=== PATIENT | male | born 1970 | race American Indian/Alaskan Native ===

== ENCOUNTER 2017-04-30 09:16 | Emergency (ER) | payer BC, OTHER ==
[2017-04-30 09:35] VITALS: BP 128/73
[2017-04-30 10:06] LABS: Basophils # (Auto) 0.1 K/mm3 (0.0-0.1); Basophils % (Auto) 0.7 % (0.0-1.8); Eosinophils # (Auto) 0.2 K/mm3 (0.0-0.4); Eosinophils % (Auto) 2.1 % (0.0-4.3); Hematocrit 42.8 % (35.5-45.6); Hemoglobin 14.2 gm/dl (11.8-15.2); Lymphocytes # (Auto) 1.8 K/mm3 (1.2-5.4); Lymphocytes % (Auto) 23.3 % (13.4-35.0); Mean Corpuscular HGB Conc 33 % (32-34); Mean Corpuscular Hemoglobin 27 pg (28-32); Mean Corpuscular Volume 82 fl (84-94); Monocytes # (Auto) 0.6 K/mm3 (0.0-0.8); Monocytes % (Auto) 7.4 % (0.0-7.3); Platelet Count 151 K/mm3 (140-440); Red Blood Count 5.22 M/mm3 (3.65-5.03); Red Cell Distribution Width 15.5 % (13.2-15.2)
[2017-04-30 10:23] LABS: Bilirubin,Urine NEG (Negative); Blood,Urine NEG (Negative); Color,Urine Straw (Yellow); Nitrite,Urine NEG (Negative); Protein,Urine <15 mg/dL mg/dL (Negative); Urobilinogen,Urine < 2.0 mg/dL (<2.0); WBC,Urine < 1.0 /HPF (0.0-6.0)
[2017-04-30 10:27] LABS: Alanine Aminotransferase 43 units/L (7-56); Albumin 4.3 g/dL (3.9-5); BUN/Creatinine Ratio 17; Blood Urea Nitrogen 15 mg/dL (9-20); Calcium 9.1 mg/dL (8.4-10.2); Hemolysis Index 9
[2017-04-30] MEDS ORDERED: ROCEPHIN IM ONE (11:20)
[2017-04-30] MEDS ORDERED: XYLOCAINE 1% MPF 5 mL INFILTRATI ONE (11:20)
[2017-04-30] MEDS ORDERED: ZITHROMAX PO ONE (11:20)
--- NOTE | 2017-04-30 12:06 | Cat Scan Report ---
CT scan of abdomen and pelvis without IV contrast: History: Right-sided flank pain, stone. Findings: Normal lung bases. No pleural pericardial effusion. Normal liver spleen pancreas and gallbladder. The normal adrenals and kidney parenchyma. No calculi or hydronephrosis. Decompressed urinary bladder. The No free intraperitoneal fluid or air. No evidence of adenopathy. Gaseous colon with a large volume of stool in ascending colon and transverse colon. No bowel distention. Normal appendix. No evidence of diverticulitis. Impression: No calculi or hydronephrosis. No evidence of appendicitis. Large volume stool in ascending and transverse colon.
--- NOTE | 2017-04-30 12:30 | Emergency Department Report ---
ED Male HPI - General Chief complaint: Back Pain/Injury Stated complaint: FLANK PAIN Time Seen by Provider: 04/30/17 10:18 Source: patient Mode of arrival: Ambulatory Limitations: No Limitations - History of Present Illness Initial comments: 46-year-old male past medical history DVT, history of UTIs presents with complaint of 2 weeks of increased urinary frequency. Patient also states he has been feeling constipated. Denies fevers chills nausea or vomiting. Patient is awake alert and oriented 3 not in acute distress and nontoxic appearing. Patient denies any hematuria. Denies chest pain palpitations shortness of breath. Denies any foul-smelling urine. MD Complaint: dysuria Onset/Timin -: week(s) - Related Data Sexually active: Yes Previous Rx's Medication Instructions Recorded Last Taken Type HYDROcodone/APAP 5-325 [[place] 2 each PO Q6H PRN #60 tablet 02/01/15 Unknown Rx 5-325 mg TAB] Docusate Sodium [Colace CAP] 100 mg PO BID PRN #30 capsule 04/30/17 Unknown Rx Nitrofurantoin Monohyd/M-Cryst 100 mg PO BID #14 capsule 04/30/17 Unknown Rx [Macrobid 100 mg Capsule] Allergies Allergy/AdvReac Type Severity Reaction Status Date / Time No Known Allergies Allergy Verified 01/31/15 12:11 ED Review of Systems ROS: Stated complaint: FLANK PAIN Other details as noted in HPI Constitutional: denies: chills, fever Eyes: denies: eye pain, eye discharge, vision change ENT: denies: ear pain, throat pain Respiratory: denies: cough, shortness of breath, wheezing Cardiovascular: denies: chest pain, palpitations Endocrine: no symptoms reported Gastrointestinal: constipation. denies: abdominal pain, nausea, diarrhea Genitourinary: urgency, frequency. denies: dysuria Musculoskeletal: denies: back pain, joint swelling, arthralgia Skin: denies: rash, lesions Neurological: denies: headache, weakness, paresthesias Psychiatric: denies: anxiety, depression Hematological/Lymphatic: denies: easy bleeding, easy bruising ED Past Medical Hx - Past Medical History Previous Medical History?: Yes Hx Congestive Heart Failure: No Hx Diabetes: No Hx Deep Vein Thrombosis: Yes Hx Asthma: No Hx COPD: No Additional medical history: DVT:LEFT LEG - Surgical History Past Surgical History?: Yes Additional Surgical History: Vascular procedure left leg because of the DVT - Social History Smoking Status: Never Smoker Substance Use Type: Alcohol - Medications Home Medications: Home Medications Medication Instructions Recorded Confirmed Last Taken Type HYDROcodone/APAP 5-325 [[place] 2 each PO Q6H PRN #60 tablet 02/01/15 Unknown Rx 5-325 mg TAB] Docusate Sodium [Colace CAP] 100 mg PO BID PRN #30 capsule 04/30/17 Unknown Rx Nitrofurantoin Monohyd/M-Cryst 100 mg PO BID #14 capsule 04/30/17 Unknown Rx [Macrobid 100 mg Capsule] ED Physical Exam - General Limitations: No Limitations General appearance: alert, in no apparent distress - Head Head exam: Present: atraumatic, normocephalic - Eye Eye exam: Present: normal appearance, PERRL, EOMI - ENT ENT exam: Present: mucous membranes moist - Neck Neck exam: Present: normal inspection - Respiratory Respiratory exam: Present: normal lung sounds bilaterally. Absent: respiratory distress - Cardiovascular Cardiovascular Exam: Present: regular rate, normal rhythm. Absent: systolic murmur, diastolic murmur, rubs, gallop - GI/Abdominal GI/Abdominal exam: Present: soft, normal bowel sounds - Rectal Rectal exam: Present: deferred - Extremities Exam Extremities exam: Present: normal inspection - Back Exam Back exam: Present: normal inspection - Neurological Exam Neurological exam: Present: alert, oriented X3 - Psychiatric Psychiatric exam: Present: normal affect, normal mood - Skin Skin exam: Present: warm, dry, intact, normal color. Absent: rash ED Course Vital Signs 04/30/17 09:32 Temperature 98.2 F Pulse Rate 79 Respiratory 16 Rate Blood Pressure 128/73 O2 Sat by Pulse 97 Oximetry ED Medical Decision Making - Lab Data Result diagrams: 04/30/17 09:37 04/30/17 09:37 - Medical Decision Making A/P: UTI in male,constipation 1-will treat patient empirically with Macrobid. CT unremarkable shows a large volume of stool. No other acute findings. 2-Colace when necessary 3-follow up with primary care and urology Critical care attestation.: If time is entered above; I have spent that time in minutes in the direct care of this critically ill patient, excluding procedure time. ED Disposition Clinical Impression: Dysuria Constipation Qualifiers: Constipation type: unspecified constipation type Qualified Code(s): K59.00 - Constipation, unspecified Disposition: TO HOME OR SELFCARE Is pt being admited?: No Does the pt Need Aspirin: No Condition: Stable Instructions: Constipation (ED), Urinary Tract Infection in Men (ED) Prescriptions: Docusate Sodium [Colace CAP] 100 mg PO BID PRN #30 capsule PRN Reason: Constipation Nitrofurantoin Monohyd/M-Cryst [Macrobid 100 mg Capsule] 100 mg PO BID #14 capsule Referrals: [facility] [Provider Group] - 3-[address] [facility] [Outside] - 3-5 Days [facility] [Outside] - 3-5 Days Forms: Work/School Release Form(ED) Time of Disposition: 12:32
== END 2017-04-30 12:52 | disposition home or self-care (01) ==
LOC: ED 09:16
DX: R30.0 Dysuria (principal); K59.00 Constipation, unspecified
CPT/HCPCS: 36415; 74176; 80053; 81001; 85025; 87591; 96372; 99284; J0696